=== PATIENT | male | born 1965 | race Caucasian/White ===

== ENCOUNTER 2019-02-09 05:34 | Inpatient (IN) | payer BC ==
[2019-02-09] VITALS (13 sets, daily range): BP systolic 102–135; BP diastolic 51–74
[~2019-02-09] VITALS: Ht 181.6 cm; Wt 79.4 kg
[2019-02-09] MEDS ORDERED: SODIUM CHLORIDE 0.9% 1000ML 1,000 ML IV ONE (05:49)
[2019-02-09 06:14] LABS: BASOPHILS % (AUTO) 0.7 % (0.0-5.0); EOSINOPHILS % (AUTO) 1.7 % (0.0-8.0); HEMATOCRIT 38.4 % (42-54); LYMPHOCYTES % (AUTO) 3.5 % (21.0-51.0); MEAN CORPUSCULAR HEMOGLOBIN 31.7 pg (27.0-33.0); MEAN CORPUSCULAR HGB CONC 34.1 g/dL (32.0-36.0); MEAN CORPUSCULAR VOLUME 93.1 fL (79-99); MONOCYTES % (AUTO) 8.7 % (3.0-13.0); NEUTROPHILS % (AUTO) 85.4 % (40.0-77.0); PLATELET COUNT (AUTO) 276 K/uL (130-400); RED BLOOD CELL COUNT(AUTO) 4.12 MIL/uL (4.50-6.20); RED CELL DISTRIBUTION WIDTH 15.1 % (11.0-15.5)
[2019-02-09] MEDS ORDERED: HYOS-28 PO (06:23)
[2019-02-09] MEDS ORDERED: HYDR-4060 PO (06:23)
[2019-02-09] MEDS ORDERED: SPIR50TA5 PO (06:23)
[2019-02-09] MEDS ORDERED: AMLO5TAB9 PO (06:23)
[2019-02-09] MEDS ORDERED: FURO40TA5 PO (06:23)
[2019-02-09] MEDS ORDERED: SUCCINYLCHOLINE 200MG/10ML SYR ONE (06:36)
[2019-02-09] MEDS ORDERED: FENTANYL CITRATE PF 50 MCG/1 ML 2ML VIAL ONE (06:36)
[2019-02-09] MEDS ORDERED: LIDOCAINE HCL 2% 20ML ONE (06:36)
[2019-02-09] MEDS ORDERED: PROPOFOL 10 MG/ML 20ML VIAL IV ONE (06:36)
[2019-02-09] MEDS ORDERED: IOHEXOL-350 50ML VIAL IV ONE (06:43)
[2019-02-09] MEDS ORDERED: INDOMETHACIN 50 MG SUPP.RECT RC SCH (06:45)
[2019-02-09 06:49] LABS: INR 1.71 (0.85-1.15); PROTHROMBIN TIME 17.6 SEC (9.6-11.6)
[2019-02-09] MEDS ORDERED: GLUCAGON 1MG KIT 1 MG ML ONE (06:51)
[2019-02-09 07:01] LABS: CREATININE 1.2 mg/dL (0.5-1.5); POTASSIUM 3.4 mmol/L (3.5-5.1)
[2019-02-09 07:07] LABS: ALBUMIN 1.7 g/dL (3.5-5.0); BILIRUBIN,TOTAL 14.5 mg/dL (0.2-1.0); TOTAL PROTEIN, SERUM 6.2 g/dL (6.0-8.3)
[2019-02-09] MEDS ORDERED: ONDANSETRON HCL 4 MG/2 ML VIAL ONE (07:29)
[2019-02-09] MEDS ORDERED: PHENYLEPHRINE HCL 10 MG/ML 1ML VIAL IV ONE (07:39)
[2019-02-09] MEDS ORDERED: ZOSYN 3.375GM+NS 50ML 50 ML IV SCH ×2 (09:22→22:00)
[2019-02-09] MEDS ORDERED: HYDROCODONE/ACETAMINOPHEN 5/325 MG TAB PO PRN (09:30)
[2019-02-09] MEDS ORDERED: LIDOCAINE HCL-MPF 1% 2ML VIAL IV PRN ×2 (10:00→21:15)
[2019-02-09] MEDS ORDERED: POTASSIUM CHLORIDE 20MEQ/100ML 100 ML IV PRN ×2 (10:00→21:15)
[2019-02-09] MEDS: SODIUM CHLORIDE 0.9% 1000ML 1,000 ML IV SCH ×2 (10:55→21:27)
[2019-02-09] MEDS: FAMOTIDINE/PF 20 MG/2 ML VIAL IV SCH ×2 (10:55→21:09)
--- NOTE | 2019-02-09 11:30 | NUR ---
ADMISSION ASSESSMENT COMPLETED ROOM ORIENTATION WAS DONE WITH THE PATIENT AND FAMILY. IVF IS INFUSING WITHOUT PROBLEM. PATIENT IS CURRENTLY STABLE. CONSENT WAS OBTAINED FOR MRCP AND PLACED IN THE CHART. PLAN OF CARE WAS EXPLAINED TO THE PATIENT AND HIS AND THEY VOICED UNDERSTANDING.
[2019-02-09] MEDS: ZOSYN 3.375GM+NS 50ML 50 ML IV SCH ×2 (13:00→21:09)
[2019-02-09] MEDS ORDERED: GADODIAMIDE 10 MMOL/20 ML VIAL IV ONE (13:56)
--- NOTE | 2019-02-09 15:03 | NUR ---
RETURNED FROM MRI VIA W/C.
--- NOTE | 2019-02-09 17:51 | NUR ---
cm note met with patient and states resides at home with spouse, works, drivesindependent with adls and selfcare. no dme. dcplan is back home. Addendum: 02/09/19 at 1752 by LORA LOYD CM Amended: Links added.
[2019-02-09] MEDS ORDERED: PHYTONADIONE 10 MG/1 ML AMP SQ SCH (20:00)
[2019-02-09] MEDS ORDERED: FUROSEMIDE 40 MG TABLET PO SCH (21:00)
[2019-02-09] MEDS ORDERED: SPIRONOLACTONE 25 MG TAB PO SCH (21:00)
[2019-02-09] MEDS ORDERED: ZOLPIDEM TARTRATE 5 MG TAB ONE (21:06)
[2019-02-09] MEDS ORDERED: POTASSIUM CHLORIDE 20 MEQ ERTAB PO ONE (21:06)
[2019-02-09] MEDS ORDERED: ZOLPIDEM TARTRATE 5 MG TAB PO PRN (21:15)
[2019-02-09] MEDS ORDERED: POTASSIUM CHLORIDE 10% ELIXIR 20 MEQ/15 ML UDCUP PO PRN (21:15)
[2019-02-10] VITALS (16 sets, daily range): BP systolic 87–154; BP diastolic 45–96
[2019-02-10 03:20] LABS: BASOPHILS % (AUTO) 0.6 % (0.0-5.0); EOSINOPHILS % (AUTO) 0.8 % (0.0-8.0); HEMATOCRIT 31.6 % (42-54); LYMPHOCYTES % (AUTO) 1.9 % (21.0-51.0); MEAN CORPUSCULAR HEMOGLOBIN 32.4 pg (27.0-33.0); MEAN CORPUSCULAR HGB CONC 34.9 g/dL (32.0-36.0); MEAN CORPUSCULAR VOLUME 92.9 fL (79-99); MONOCYTES % (AUTO) 8.3 % (3.0-13.0); NEUTROPHILS % (AUTO) 88.4 % (40.0-77.0); PLATELET COUNT (AUTO) 195 K/uL (130-400); RED CELL DISTRIBUTION WIDTH 15.5 % (11.0-15.5); WHITE BLOOD COUNT (AUTO) 13.8 K/uL (4.8-10.8)
[2019-02-10 03:26] LABS: ALBUMIN 1.6 g/dL (3.5-5.0); BILIRUBIN,TOTAL 15.2 mg/dL (0.2-1.0); CREATININE 1.1 mg/dL (0.5-1.5); POTASSIUM 3.4 mmol/L (3.5-5.1); TOTAL PROTEIN, SERUM 5.8 g/dL (6.0-8.3)
[2019-02-10 03:53] LABS: INR 1.73 (0.85-1.15); PROTHROMBIN TIME 17.8 SEC (9.6-11.6)
[2019-02-10] MEDS: MORPHINE SULFATE 2 MG/ML 1ML SYG IV PRN (04:24)
[2019-02-10] MEDS: SODIUM CHLORIDE 0.9% 1000ML 1,000 ML IV SCH ×3 (06:08→19:14)
[2019-02-10] MEDS: ZOSYN 3.375GM+NS 50ML 50 ML IV SCH ×3 (06:09→21:20)
--- NOTE | 2019-02-10 07:25 | NUR ---
RESTING IN BED WITH EYES CLOSED RIGHT SIDE LYING POSITION WITH NO ACUTE RESPIRATORY DISTRESS. JUST COMPLETED THE SECOND UNIT OF FFP WITH THE NIGHT NURSE. IVF IS NOW INFUSING WITH THE ANTIBIOTIC THERAPY.
[2019-02-10 08:54] LABS: INR 1.35 (0.85-1.15)
[2019-02-10] MEDS ORDERED: AMLODIPINE BESYLATE 5 MG TAB PO SCH (09:00)
[2019-02-10] MEDS: ENOXAPARIN SODIUM 40 MG/0.4 ML SYRINGE SQ SCH (09:00)
[2019-02-10] MEDS: FAMOTIDINE/PF 20 MG/2 ML VIAL IV SCH ×2 (09:23→21:20)
--- NOTE | 2019-02-10 10:19 | NUR ---
ULTRASOUND TX IS IN PROGRESS AT THIS TIME.
[2019-02-10] MEDS: MIDODRINE HCL 5 MG TABLET PO SCH ×2 (13:37→21:20)
[2019-02-10] MEDS: SPIRONOLACTONE 25 MG TAB PO SCH (13:38)
[2019-02-10] MEDS: POTASSIUM CHLORIDE 20 MEQ ERTAB PO PRN ×2 (13:43→17:48)
[2019-02-10] MEDS: FUROSEMIDE 40 MG TABLET PO SCH (13:44)
--- NOTE | 2019-02-10 15:07 | NUR ---
TAKEN TO RADIOLOGY VIA W/C FOR PARACENTESIS.
[2019-02-10] MEDS ORDERED: PHARMACY COMMUNICATION MISC SCH (16:15)
--- NOTE | 2019-02-10 16:15 | NUR ---
U/S GD PARACENTESIS PROCEDURE PERFORMED BY DR Delmar PARRISH. PUNCTURE SITE RLQ AND PATIENT TOLERATED PROCEDURE WELL. TOTAL REMOVED 4.8 LITERS OF CLEAR YELLOW FLUID. END OF PROCEDURE AT 1555. CATHETER REMOVED AND DRESSING APPLIED. NO BLEEDING NOTED. REPORT GIVEN TO Glenn PARIKH RN AND PATIENT TRANSPORTED TO [facility] VIA W/C AT 1615. AAO X3 WITH C/O WEAKNESS. SPECIMEN SENT TO LAB AND ALBUMIN 25% 50 GRAMS ORDERED PER PROTOCOL.
--- NOTE | 2019-02-10 16:30 | NUR ---
RETURNED FROM RADIOLOGY POST PARACENTESIS ALERT WITH REPORTED WEAKNESS. RLQ DRESSING IS CLEAN AND DRY WITH NO ACUTE BLEEDING. VITAL SIGNS ARE STABLE. WILL CONTINUE TO MONITOR. IS AT THE BEDSIDE.
[2019-02-10] MEDS ORDERED: ALBUMIN (HUMAN) 25% 200 ML IV ONE (17:00)
[2019-02-10 17:54] LABS: APPEARANCE BODY FLUID SLIGHTLY CLOUDY (CLEAR); BF LYMPHOCYTE 27 %; BF MESOTHELIAL 60 %; BF MONOCYTE 4 %; COLOR,BODY FLUID YELLOW (LT YELLOW); SPECIMENTYPE,BODY FLUID ASCITES; TOTAL VOLUME,BODY FLUID 4800 mL
[2019-02-10 17:55] LABS: BODY FLUID RBC 145 /cu. mm.; BODY FLUID WBC 137 /cu. mm.
--- NOTE | 2019-02-10 18:40 | NUR ---
ALBUMIN INFUSION IS COMPLETED PATIENT IS RESTING AND SEEMS STABLE.
[2019-02-11] VITALS (24 sets, daily range): BP systolic 94–119; BP diastolic 51–69
[2019-02-11 05:15] LABS: HEMATOCRIT 30.9 % (42-54); MEAN CORPUSCULAR HEMOGLOBIN 32.7 pg (27.0-33.0); MEAN CORPUSCULAR HGB CONC 35.4 g/dL (32.0-36.0); MEAN CORPUSCULAR VOLUME 92.5 fL (79-99); PLATELET COUNT (AUTO) 163 K/uL (130-400); RED BLOOD CELL COUNT(AUTO) 3.34 MIL/uL (4.50-6.20); RED CELL DISTRIBUTION WIDTH 15.4 % (11.0-15.5)
[2019-02-11 05:19] LABS: INR 1.25 (0.85-1.15)
[2019-02-11 05:41] LABS: ALBUMIN 2.4 g/dL (3.5-5.0); CREATININE 0.8 mg/dL (0.5-1.5); POTASSIUM 3.6 mmol/L (3.5-5.1); TOTAL PROTEIN, SERUM 6.2 g/dL (6.0-8.3)
[2019-02-11 05:50] LABS: BILIRUBIN,TOTAL 18.5 mg/dL (0.2-1.0)
[2019-02-11] MEDS: ZOSYN 3.375GM+NS 50ML 50 ML IV SCH ×3 (05:57→20:49)
[2019-02-11] MEDS: SODIUM CHLORIDE 0.9% 1000ML 1,000 ML IV SCH (06:27)
[2019-02-11] MEDS: MIDODRINE HCL 5 MG TABLET PO SCH ×3 (09:00→20:53)
[2019-02-11] MEDS: SPIRONOLACTONE 25 MG TAB PO SCH (09:00)
[2019-02-11] MEDS: ENOXAPARIN SODIUM 40 MG/0.4 ML SYRINGE SQ SCH (09:00)
[2019-02-11] MEDS: FUROSEMIDE 40 MG TABLET PO SCH (09:00)
[2019-02-11] MEDS: FAMOTIDINE/PF 20 MG/2 ML VIAL IV SCH ×2 (09:23→20:49)
[2019-02-11] MEDS: MORPHINE SULFATE 2 MG/ML 1ML SYG IV PRN ×3 (09:24→20:53)
[2019-02-11] MEDS ORDERED: IOHEXOL-350 50ML VIAL IV ONE (17:40)
[2019-02-11] MEDS ORDERED: SUCCINYLCHOLINE 200MG/10ML SYR ONE (17:43)
[2019-02-11] MEDS ORDERED: PROPOFOL 1000 MG/100 ML 100 ML IV ONE (17:43)
--- NOTE | 2019-02-11 17:45 | NUR ---
TAKEN TO THE GI LAB IN STABLE CONDITION.
[2019-02-11] MEDS ORDERED: PHENYLEPHRINE HCL 10 MG/ML 1ML VIAL IV ONE (17:58)
[2019-02-11] MEDS ORDERED: SODIUM CHLORIDE 0.9% 10 ML VIAL ONE (17:58)
[2019-02-11] MEDS ORDERED: INDOMETHACIN 50 MG SUPP.RECT RC SCH (18:15)
--- NOTE | 2019-02-11 19:20 | NUR ---
nursing note pt arrived to floor after procedure. pt drowsy but oriented. family at bedside. pt hooked to bedside monitor
--- NOTE | 2019-02-11 20:50 | NUR ---
Nursing Note Pt's family at bedside. Pt and family refused midodrine and the Indocin.
[2019-02-12 04:00] VITALS: BP 99/62
[2019-02-12] MEDS: SODIUM CHLORIDE 0.9% 1000ML 1,000 ML IV SCH ×2 (04:20→15:12)
[2019-02-12] MEDS: ZOSYN 3.375GM+NS 50ML 50 ML IV SCH ×2 (04:20→15:02)
[2019-02-12] MEDS: MORPHINE SULFATE 2 MG/ML 1ML SYG IV PRN (04:25)
[2019-02-12 07:54] VITALS: BP 114/74
[2019-02-12 08:01] LABS: BASOPHILS % (AUTO) 0.3 % (0.0-5.0); EOSINOPHILS % (AUTO) 0.9 % (0.0-8.0); HEMATOCRIT 33.2 % (42-54); LYMPHOCYTES % (AUTO) 2.7 % (21.0-51.0); MEAN CORPUSCULAR HEMOGLOBIN 32.6 pg (27.0-33.0); MEAN CORPUSCULAR HGB CONC 34.7 g/dL (32.0-36.0); MEAN CORPUSCULAR VOLUME 93.9 fL (79-99); MONOCYTES % (AUTO) 11.3 % (3.0-13.0); NEUTROPHILS % (AUTO) 84.8 % (40.0-77.0); PLATELET COUNT (AUTO) 173 K/uL (130-400); RED BLOOD CELL COUNT(AUTO) 3.53 MIL/uL (4.50-6.20); RED CELL DISTRIBUTION WIDTH 15.1 % (11.0-15.5); WHITE BLOOD COUNT (AUTO) 12.7 K/uL (4.8-10.8)
[2019-02-12 08:14] LABS: INR 1.27 (0.85-1.15); PROTHROMBIN TIME 13.2 SEC (9.6-11.6)
[2019-02-12 08:31] LABS: ALBUMIN 2.1 g/dL (3.5-5.0); CREATININE 0.9 mg/dL (0.5-1.5); POTASSIUM 3.7 mmol/L (3.5-5.1); TOTAL PROTEIN, SERUM 6.1 g/dL (6.0-8.3)
[2019-02-12 08:54] LABS: BILIRUBIN,TOTAL 22.2 mg/dL (0.2-1.0)
--- NOTE | 2019-02-12 09:25 | NUR ---
DR. EMERSON PAGED RE; Annabel MCKEON OF 22.2. PENDING CALL BACK.
[2019-02-12] MEDS: SPIRONOLACTONE 25 MG TAB PO SCH (11:11)
[2019-02-12] MEDS: FAMOTIDINE/PF 20 MG/2 ML VIAL IV SCH (11:11)
[2019-02-12] MEDS: FUROSEMIDE 40 MG TABLET PO SCH (11:11)
[2019-02-12] MEDS: MIDODRINE HCL 5 MG TABLET PO SCH ×2 (11:12→15:03)
[2019-02-12] MEDS: ENOXAPARIN SODIUM 40 MG/0.4 ML SYRINGE SQ SCH (11:14)
[2019-02-12 11:42] VITALS: BP 92/50
[2019-02-12 16:30] VITALS: BP 99/58
--- NOTE | 2019-02-12 17:28 | NUR ---
DIET EDUCATION ADELIA provided Cirrhosis Diet education to Pt and Significant other. RD reviewed reference materials and handouts with Pt and SO. SO with questions. RD answered questions and encouraged to notify as additional questions or concerns arise. Pt and SO verbalized understanding. Please notify as additional concerns arise. Thank you. Addendum: 02/12/19 at [address] RD Amended: Links added.
--- NOTE | 2019-02-12 18:40 | NUR ---
PT D/C HOME USING TEACH BACK TECHNIQUE RE; FOLLOW UP WITH YOUR PRIMARY DOCTOR IN 3-4 DAYS. FOR RECOMMENDATIONS REGARDING DIURETICS AND BLOOD PRESSURE MANAGEMENT. FOLLOW UP WITH YOUR ONCOLOGIST IN 1-WEEK. FOLLOW UP WITH DR. EMERSON IN 1 WEEK. CALL TO SET UP AN APPOINTMENT AT [phone]. IF ABDOMINAL PAIN IS SEVER CALL 911 OR COME TO THE EMERGENCY ROOM. WILL GIVE ANTIBIOTIC AT DISCHARGE MAKE SURE TO COMPLETE FULL COURSE TO PREVENT SUPER INFECTIONS. IF PATIENT IS LETHARGIC, CONFUSED OR IF BLOOD PRESSURE LOW 90/60 CALL YOUR PRIMARY DOCTOR FOR FURTHER RECOMMENDATIONS AND POSSIBLE REFERRAL TO EMERGENCY ROOM. IV OUT INTACT, NO BLEEDING, AAOX3, SEEN BY DR. EMERSON AND DR GRAHAM STATE OKAY TO D/C HOME FROM THEIR STANPOINT AND TO FOLLOW UP OUT PATIENT. DENY ANY QUESTIONS AT THIS TIME. BP 98/68. DENIIES ANY DIZZINESS.
== END 2019-02-12 18:50 | disposition home or self-care (01) | DRG 444 ==
LOC: DAH 05:34 → ENDO 05:34 → 3AH 05:35
PROVIDERS: ADMIT Internal Medicine; ATTEND Internal Medicine
PROC: 0FJB8ZZ Inspection of Hepatobiliary Duct, Via Natural or Artificial Opening Endoscopic (ICD-10-PCS; 2019-02-09)
PROC: 0FJB8ZZ Inspection of Hepatobiliary Duct, Via Natural or Artificial Opening Endoscopic (ICD-10-PCS; 2019-02-09)
PROC: BF111ZZ Fluoroscopy of Biliary and Pancreatic Ducts using Low Osmolar Contrast (ICD-10-PCS; 2019-02-09)
PROC: 0W9G3ZZ Drainage of Peritoneal Cavity, Percutaneous Approach (ICD-10-PCS; principal; 2019-02-10)
PROC: 30233K1 Transfusion of Nonautologous Frozen Plasma into Peripheral Vein, Percutaneous Approach (ICD-10-PCS; 2019-02-10)
DX: K83.1 Obstruction of bile duct (principal); E43 Unspecified severe protein-calorie malnutrition; R18.8 Other ascites; E87.1 Hypo-osmolality and hyponatremia; K83.09 Other cholangitis; D72.829 Elevated white blood cell count, unspecified; E87.6 Hypokalemia; E78.5 Hyperlipidemia, unspecified; I10 Essential (primary) hypertension; K74.60 Unspecified cirrhosis of liver; M19.90 Unspecified osteoarthritis, unspecified site; I95.9 Hypotension, unspecified; I73.9 Peripheral vascular disease, unspecified; Z79.899 Other long term (current) drug therapy; Z85.038 Personal history of other malignant neoplasm of large intestine; Z93.3 Colostomy status; Z82.49 Family history of ischemic heart disease and other diseases of the circulatory system; Z68.24 Body mass index [BMI] 24.0-24.9, adult
CPT/HCPCS: 36415; 36430; 43235; 43260; 49083; 74183; 74330; 76705; 80053; 82248; 84145; 85025; 85027; 85610; 85730; 86850; 86900; 86901; 86927; 87071; 87205; 88108; 88305; 89051; A4606; A9579; C1769; G0378; G9654; J0330; J1610; J1650; J2370; J2405; J2543; J2704; J3010; J3430; J3480; J3490; J7030; P9017; P9046; Q9967